=== PATIENT | male | born 1960 | race Caucasian/White ===

== ENCOUNTER → 2019-05-27 | Outpatient (CLI) | payer BC, OTHER ==
[~2019-05-27] MED LIST: ALLEGRA30 MG OR; ALLOPURINOL 10100 M1 PO; DECONGESTANT NA15 ML IH; IBUPROFEN 200200 M1 PO; NORCO 5-325 TA1 EACH PO; NORVASC 2.5 MG2.5 M1 OR; PERCOCET 7.5-51 EACH PO; PRILOSEC 20 MG20 MG PO; TYLENOL325 MG PO
== END ==
LOC: RAD 09:09
DX: J40 Bronchitis, not specified as acute or chronic (principal)